=== PATIENT | female | born 1990 | race Caucasian/White ===

== ENCOUNTER → 2022-01-11 13:39 | Outpatient (CLI) | payer OTHER, SELFPAY ==
[2022-01-11 14:17] LABS: COVID19 -Nasal RAPID Negative (Negative)
== END ==
PROVIDERS: PCP Family Medicine; Visit Provider Obstetrics & Gynecology
DX: Z20.822 Contact with and (suspected) exposure to COVID-19 (principal); Z01.812 Encounter for preprocedural laboratory examination
CPT/HCPCS: 87635

== ENCOUNTER 2022-01-12 12:04 | Day surgery (SDC) | payer OTHER, SELFPAY ==
[2022-01-09 15:11] VITALS: BMI 29.1
[2022-01-12] VITALS (13 sets, daily range): BP systolic 118–140; BP diastolic 71–91; PULSE 65–89; RESP 11–18; TEMP 36–36.9; O2SAT 94–100; BMI 29.1
--- NOTE | 2022-01-12 | PATH_ITS ---
[facility] Accession Number: [id number] . 01 Material submitted: . uterus - UTERUS, CERVIX . 01 Diagnosis: Uterus, Cervix, Hysterectomy Not Otherwise Specified (120 grams): Cervix with no significant histomorphologic abnormality. Endocervix with no significant histomorphologic abnormality. Secretory endometrium; negative for glandular hyperplasia, cytologic atypia, or malignancy. Myometrium with no significant histomorphologic abnormality. Uterine serosa with very focal areas suggestive of possible involvement by endometriosis. [facility] 01/17/2022 1548 Local . 01 Electronically signed: . Lyn Muse MD, Pathologist NPI- [id number] . 01 Gross description: . Received in formalin, labeled with the patient's name and uterus, cervix, and consists of a 120 g unopened uterus (9.5 cm SI, 7.0 cm ML, 4.0 cm AP) with attached cervix (3.4 x 3.0 cm), and no fallopian tubes or ovaries. The exocervix is congested, smooth, and glistening. The external os (0.5 cm diameter) is patent and circular. The anterior perimetrium margin is inked blue, and the posterior perimetrium margin is inked black. The endocervical canal (2.5 cm in length) has a zepeda herringbone mucosa. The endometrial cavity (2.9 cm from cornu to cornu, 5.5 cm in length) has a lush pink endometrium averaging 0.3 cm thick. The myometrium measures 1.3 cm in maximum thickness. No discrete nodules, hemorrhage, or necrosis are identified. The uterine serosa is smooth and congested with small areas of punctate hemorrhage on the anterior surface. [employer] sections are submitted as follows: A1: Anterior cervix. A2: Posterior cervix. A3: Anterior serosa to include hemorrhage. A4: Posterior serosa. A5: Anterior full-thickness section. A6: Posterior full-thickness section. A7: Dot Compliance Coordinator endometrium. ([id number]) . Additional sections are submitted as follows: A8-A11: Dot Compliance Coordinator anterior full-thickness sections. A12-A15: Dot Compliance Coordinator full-thickness posterior sections. ([id number]) /[facility] 01/16/2022 [facility] Local . 01 Pathologist provided ICD-10: N80.0, N93.9 . 01 CPT . 461836 Specimen Comment: A courtesy copy of this report has been sent to [phone] Performed at: 01 [facility] [address] [place] [address] [id number] MD Ryne Mg MD Phone: [phone]
--- NOTE | 2022-01-12 13:12 | PM.PREOP ---
Pre-operative Note COVID-19 COVID-19 status: Negative Result date/Date tested (Pos, Neg/Pending): 01/11/22 Criteria for continued procedure: Non-surgical alternatives not available or appropriate per current SOC Interval Note History & Physical reviewed/Exam performed by Physician: Yes Changes to H&P: No
[2022-01-12] MEDS: LACTATED RINGERS 1,000 ML 100 ML IV ×3 (13:22→17:15)
[2022-01-12] MEDS: CEFAZOLIN 2 GM/20 ML SYRINGE IV (13:50)
--- NOTE | 2022-01-12 14:30 | SUR.OPER ---
Lithotomy on padded OR bed. Starkweather Pad Positioner under torso. Head on pillow, arms secured on padded arm boards. Legs secured in padded yellow fins stirrups. Gel pad positoned under right upper arm for support.
[2022-01-12] MEDS: LACTATED RINGERS 1,000 ML 42 ML IV (14:45)
[2022-01-12] MEDS: ROPIVACAINE 0.2% PF 2 MG/ML 10ML AMP 20 ML INJ (15:10)
[2022-01-12] MEDS: BUPIVACAINE 0.5% W/ EPI (PF) 30 ML VIAL INJ (15:15)
[2022-01-12] MEDS: ACETAMINOPHEN IV 1,000 MG/100 ML VIAL 400 MG IV (15:15)
--- NOTE | 2022-01-12 15:54 | PM.GYNOP.1 ---
Operative Date/Time/Diagnoses Date of procedure: 01/12/22 Time of procedure: 14:15 Pre-op diagnosis: Breakthrough bleeding on oral contraceptives Severe premenstrual dysphoric disorder (PMDD) requiring ovarian cycle suppression Post-op diagnosis: same Procedure & Clinicians Procedure: Procedures Operation Date: 01/12/22 13:30 Actual Procedure Side Surgeon p Laparoscopic Total Hysterectomy Antonio Long MD Indications: Shana is a 31-year-old , LMP 10/27/2021 or who presented in referral from [facility] for evaluation and treatment of her premenstrual symptoms.? The patient experienced menarche at age 15 and has had premenstrual mood changes (primarily depressive) as long as she can remember having periods.? The symptoms have progressively worsened with age and she was also diagnosed with chronic depression in 2019.? She has been tried on a variety of SSRIs which did not benefit her PMDD and/or had intolerable side effects.? The most beneficial SSRI was Lexapro but while it helped, it caused significant drowsiness and in higher doses irritability.? She is currently on Efexor daily and under the care of a psychiatrist.? In addition, she has been tried on a variety of oral contraceptives and subsequently the contraceptive patch.? As long as she experienced menstrual suppression, she did not have PMDD symptoms.? Unfortunately she has been having nearly continuous breakthrough bleeding on virtually all control pills that she has tried as well as the patch.? The spotting and bleeding on the pill became so bad that her period in September lasted from 09/14/2021 through 10/05/2021 and she stopped her pills in September.? Pelvic ultrasound performed in November 2020 at [facility] was unremarkable aside from a small functional cyst on one of the ovaries.? No evidence of adenomyosis was seen at the endometrial/myometrial junction and the endometrial stripe was unremarkable.? Patient had a tubal ligation performed in 2018 and has no desire for future childbearing.? The patient is understandably very frustrated and would like definitive therapy if at all possible in the form of hysterectomy with BSO.? She has raise that with her other providers in the past and has been discouraged from pursuing that approach due to the or potential affects/consequences of early surgical menopause.? I have also recommended against surgical menopause at age 31 but rather to remove the uterus/cervix both as a source of pain and bleeding then postoperatively utilize low-dose continuous oral contraceptives to suppress her ovarian cycle and mitigate at least some of her PMDD symptoms.? She is amenable to this approach and is therefore scheduled for total laparoscopic hysterectomy on 01/12/[address] [facility] OR of [facility].? She presents today for preoperative evaluation, counseling, and consent. Surgeon: Antonio Long Aggregate Conveyor Operator: Betina Haddad Anesthesia Type: General Operative Notes Findings: Uterus is hypervascular with varicosities adjacent lateral aspect of the uterus on both sides. The uterus itself is normal in size and mid plane. There is a adhesive band from the anterior aspect of the uterine fundus to the dome of the bladder which was lysed during the course of the surgery. Both fallopian tubes are absent from prior bilateral salpingectomy. Both ovaries appeared to be normal. There are no abnormalities visible in the posterior cul-de-sac. The appendix is visibly normal. The upper abdomen is visibly normal to laparoscopic evaluation. Both ureters were seen to be freely peristalsing before and after completion of the surgery. Closure Type: primary Specimen(s): uterus Applied: catheter Estimated blood loss (mL): 150 Blood products transfused: none Procedure in detail: With the patient under satisfactory general endotracheal anesthesia in the modified dorsal lithotomy position, the perineum, vagina, and abdomen were prepped and draped in the usual manner for total laparoscopic hysterectomy. A pre-surgical safety time-out was then taken in accordance with [facility] protocols. A bivalve speculum was then inserted in the vagina and the cervix visualized. The anterior lip of the cervix was then grasped with a single-tooth tenaculum and the endocervical canal dilated to 6 mm diameter. A [employer] uterine manipulator with a medium cup was then placed in the usual manner and preparations made for TLH. The umbilicus was infiltrated with 0.5% Marcaine with epinephrine and a 5 cm vertical umbilical incision was made. A Veress needle was then used to insufflate the abdominal cavity with carbon dioxide in once insufflated a 5 mm trocar and sleeve was placed. Correct placement of the trocar and sleeve was confirmed laparoscopically and a 2nd and 3rd 5 mm laparoscopic trocar and sleeve were placed in a similar manner in the left and right mid quadrants. Using a 3 puncture technique the pelvis and abdomen were inspected with the findings as noted previously. Attention was then turned to the right adnexa with the utero-ovarian ligament and round ligament taken, coagulated, and divided using a bipolar power seal device. The dissection was carried down the lateral aspect of the uterus on the right side to the level of the colpotomy cup where the bladder flap was initiated from the right side and carried across the midline. The vessels on the right side were then coagulated and left intact. Attention was then turned to the left side with the utero-ovarian ligament and round ligament taken and divided with the power seal device. The dissection was then carried down the left lateral aspect of the uterus with careful avoidance of the varicosities. The bladder flap was then completed at the level of the colpotomy cup and the vessels on the left side were coagulated and divided. The dissection of the posterior peritoneum was carried out along the line of the colpotomy cup and 1 skeletonized attention was turned back to the right side where the vessels were secured with a power seal device and divided. Monopolar J-hook was then used to circumferentially incise the vagina at the level of the fornices and the uterus was easily detached. The uterus was then removed vaginally and the vaginal cuff itself was closed with 0 Vicryl [id number] interrupteds initiated at each angle. Once complete closure the cuff had been achieved and hemostasis assured, a sponge stick was placed in the vagina and the abdomen reinsufflated. The pelvis was inspected and there were no points of bleeding even with reduced intra-abdominal pressure. 20 cc of ropivacaine solution was then placed in the posterior cul-de-sac and the pneumoperitoneum vented. The laparoscopic sleeves were then removed after of venting of the pneumoperitoneum and the incisions were closed with 4-0 Monocryl using inverted interrupted stitches. Appropriate dressings were then applied, the sponge stick was removed from the vagina, the patient awakened, and was transferred to the PACU after having tolerated the procedure well. Urine output 150 cc of clear but concentrated urine. Complications: none Post-operative Condition: stable Disposition: PACU Plan for aftercare: Routine postoperative care. Anticipate discharge, a.m. 01/13/2022
--- NOTE | 2022-01-12 17:33 | PC.NURSE ---
Pt arrived from PACU @ 1715 Alert/drowsy SpO2 96% RA, pt uses Cpap at [facility]. Abdomen soft w/ 3 sites across middle. All sites CDI No drainage on lorna pad at this time. Oriented to room & call system. Call light w/in reach, bed alarm on for pt safety. Continue w/plan of care.
[2022-01-12] MEDS: KETOROLAC 30 MG/ML VIAL IV ×2 (18:15→23:05)
[2022-01-12] MEDS: DOCUSATE 100 MG CAPSULE 200 MG PO (21:28)
[2022-01-12] MEDS: OXYCODONE IR 5 MG TABLET PO (21:31)
--- NOTE | 2022-01-12 23:52 | PC.NURSE ---
2320 Up OOB & ambulated to the bathroom. Did well denies dizziness, per MD order noted may discontinue swenson when able to go to the bathroom. Swenson DC'd @ 2330 tolerated procedure well. Up to the BR & sat in the toilet after swenson cath. was DC'd, noted approximately 2 cc of blood . Veronika & skin care done placed underwear & peripad. Instructed to call for assistance if she needed to get up to the BR. to void. Informed pt. that her doctor ordered PVR after she voided. Will cont. POC & monitor.
--- NOTE | 2022-01-13 01:19 | PC.NURSE ---
Up to the bathroom voided 600 ml. of clear yellow urine, no blood noted. Bladder scanned checking for post void residual only 5 ml. noted. Pt. denies any pain, will cont. POC & monitor.
[2022-01-13] MEDS: LACTATED RINGERS 1,000 ML 100 ML IV (03:09)
[2022-01-13 04:42] LABS: Add Manual Diff / Slide Review NO; Basophils Absolute Auto 0 /uL (0-100); Basophils Percent Auto 0.1 % (0-2); Eosinophils Absolute Auto 0 /uL (0-450); Hematocrit 32.9 % (36-46); Hemoglobin 11.4 g/dL (12.0-16.0); Lymphocytes Absolute Auto 1300 /uL (1100-4500); Lymphocytes Percent Auto 10.9 % (25-40); Mean Corpuscular HGB Conc 34.5 % (30-36); Mean Corpuscular Hemoglobin 30.4 PG (26-34); Monocytes Absolute Auto 700 /uL (0-900); Neutrophils Absolute Auto 9500 /uL (1500-7000); Platelet Count 349 X10^3/uL (150-400); Red Blood Cell Count 3.74 X10^6/uL (4.0-5.2); Red Cell Distribution Width 13.2 % (11.6-14.8); White Blood Cell Count 11.5 X10^3/uL (4.5-11.0)
[2022-01-13] MEDS: KETOROLAC 30 MG/ML VIAL IV ×2 (05:06→10:47)
--- NOTE | 2022-01-13 05:30 | PC.NURSE ---
Voided 700 cc & checked PVR only 18 ml.
[2022-01-13] MEDS: OXYCODONE IR 5 MG TABLET PO (06:35)
[2022-01-13 08:00] VITALS: BP 133/75; PULSE 82; RESP 16; TEMP 36.8; O2SAT 98
[2022-01-13] MEDS: VENLAFAXINE ER 75 MG CAP PO (08:52)
[2022-01-13] MEDS: DOCUSATE 100 MG CAPSULE 200 MG PO (08:53)
--- NOTE | 2022-01-13 09:06 | PM.DS.1 ---
History of Present Illness History of Present Illness Date Patient Seen: 01/13/22 Time Patient Seen: 09:06 Chief complaint: OPB Discharge Providers Provider Date of admission: 01/12/2022 Discharge Date: 01/13/22 Primary care physician: Jordan Easton MD Consults: 01/12/22 13:02 Consult to Respiratory Therapy Evaluate & Treat Comment: Physician Instructions: Evaluate and treat Discharge provider: Antonio Long MD Summary Hospital Course Discharge Diagnosis: Abnormal uterine bleeding on oral contraceptives Severe PMDD requiring ovarian cycle suppression for control Hospital Course: Shana was admitted on 01/12/2022 and underwent an on eventful total laparoscopic hysterectomy on that afternoon. Details of the procedure well summarized in my dictated operative note of that date. Following surgery the patient has done extremely well with prompt return of bowel and bladder function overnight, she is ambulating independently, tolerating regular diet, and her pain is well controlled with oral pain medications. She is not having any significant vaginal bleeding and her 1st morning postop hemoglobin and hematocrit are consistent with observed operative losses at the time of surgery. Patient will be discharged at this time to home in an afebrile normotensive state now after being counseled regarding precautionary symptoms, limitations of activity, medications, and plans for follow-up. Medications will include all of her pre hospitalization home medications and patient is prescribed oxycodone 5 mg tab 1 p.o. q.6 hours as needed pain x3 days dispense 10. Patient will also use pikr-ggh-[id number] Tylenol and ibuprofen for pain relief and will be seen back in the office in 2 weeks for her initial postop visit. Status at Discharge Cognitive/behavioral status at discharge: oriented Functional status at discharge: independent ambulation Overall status at discharge: patient is progressing back to baseline Time Spent with Patient Time spent: Less than 30 minutes Exam Vital Signs (past 8 hours): - 01/13/22 08:00 Temperature 98.3 F Pulse Rate 82 Respiratory Rate 16 Blood Pressure 133/75 Pulse Oximetry 98 Oxygen Delivery Method Nasal Cannula Oxygen Flow Rate 0 Const General: cooperative and comfortable Nutritional Appearance: average body habitus Orientation: alert and oriented x3 HENMT Head: normal to inspection, atraumatic and abrasion Ears: hearing grossly normal bilaterally Face and sinus: face symmetric Eyes General: appearance normal, both eyes and all related structures Conjunctivae: conjunctivae normal Sclera: sclerae normal EOM: EOM intact bilaterally Neck Neck: normal visual inspection Resp Effort & Inspection: normal respiratory effort and able to speak in complete sentences Auscultation: clear to auscultation bilaterally Cardio Rate: regular rate Rhythm: regular rhythm Heart Sounds: S1 normal, S2 normal and no murmurs GI Inspection: normal to inspection and incision (Surgical dressings clean and dry) Palpation: soft, no hepatosplenomegaly and tender (Mild, diffuse postsurgical tenderness) External Female Exam: other (No significant bleeding noted) Extrem General: no calf tenderness Psych Appearance: grossly normal Mental Status: mental status grossly normal Speech and Movement: speech and movement normal Mood: congruent mood Affect: normal affect Attitude: cooperative Thought Process: normal Thought Content: normal Judgment: judgment good Objective Labs Result Diagrams: 01/13/22 04:20 Labs: Laboratory Results - last 24 hr 01/13/22 04:20 WBC 11.5 H RBC 3.74 L Hgb 11.4 L Hct 32.9 L MCV 88.0 MCH 30.4 MCHC 34.5 RDW 13.2 Plt Count 349 Neut % (Auto) 83.0 H Lymph % (Auto) 10.9 L [place] % (Auto) 6.0 Eos % (Auto) 0.0 L Baso % (Auto) 0.1 Neut # (Auto) 9500 H Lymph # (Auto) 1300 [place] # (Auto) 700 Eos # (Auto) 0 Baso # (Auto) 0 PFSH Medical History Abnormal Pap smear of cervix (~2011) ADHD Anxiety and depression Chicken pox Heavy menstrual period (~2020) Human papilloma virus (~2011) Irregular menstrual cycle (~2020) Left hip pain (~2011) Surgical History Anesthesia History of section (~2017) History of hip surgery Family History (Updated 11/12/21 @ 19:51 by Maggi Young) Father Mental health problem Mother Diabetes mellitus Grandfather Diabetes mellitus Social History household members: spouse and children Smoking Status: Former smoker alcohol intake: current Discharge Assessment & Plan Assessment and Plan Assessment: Status post total laparoscopic hysterectomy due to abnormal uterine bleeding on continuous oral contraceptives Severe PMDD requiring ovarian cycle suppression for control Plan of Treatment: Routine postoperative care with plans for follow-up visit in 2 weeks. Patient has been using NuvaRing but will instead initiate continuous use of Anahy for ovarian cycle suppression in treatment of her severe PMDD. Discharge Plan Discharge Plan Patient Disposition: Home Provider Discharge Comment: Please review the instructions you received when you were discharged from the hospital. Your postoperative visit will be scheduled for 2 weeks following your surgery and I look forward to seeing you then. If in the meanwhile however you have any problems, concerns, or issues, please contact me either through the office phone at [phone] or via the patient portal. Discharge orders & Medications Discharge Orders: Discharge (Order); Ordered 01/13/22 Ordered By: Antonio Long Prescriptions: New docusate sodium 100 mg Capsule 200 mg PO BID 10 Days Qty: 40 1RF oxycodone 5 mg Tablet 5 mg PO Q6H PRN (Reason: Pain, Moderate (4-6)) 3 Days Qty: 10 0RF drospirenone-ethinyl estradiol 3-0.03 mg tablet 1 tab PO DAILY Qty: 84 6RF Rx Instructions: Take the first three rows of pills in each pack, discard the fourth row, and start a new pack every three weeks. Continued venlafaxine [Effexor XR] 75 mg capsule,extended release 24hr 75 mg PO DAILY Vyvanse 60 mg capsule 60 mg PO DAILY Discontinued etonogestrel-ethinyl estradiol [NuvaRing] 0.12-0.015 mg/24 hr ring 1 vag ring vaginal Q4W Rx Instructions: leave in place for 3 weeks of a 4-week cycle Follow up/Referrals: Jordan Easton MD [Primary Care Provider] - Diet/Activity/Treatments Diet: Diet as Tolerated Activity: As tolerated Other treatments: [id number]-[id number] Tylenol (up to 4000 mg daily) and/or ibuprofen 600 mg by mouth every 6 hours as needed for pain. Skin/Wound/Dressing Care Report to your healthcare provider any signs of infection, such as:: chills, fever, increased pain, unusual drainage and unusual redness Dressing: Dressings may be removed on the morning of 01/14/2022 Visit Report/Discharge Packet Instructions: DI for Hysterectomy, DI for Laparoscopy, DI for Prescription Opioid Use, Oxycodone Stand Alone Forms: Surgery Discharge Print Language: Slovenian Discharge Data Primary Care Provider: Jordan Easton Attending Provider: Antonio Long VTE Deep Vein Thrombosis/Pulmonary Embolism Present on Admission: No
--- NOTE | 2022-01-13 10:04 | PC.NURSE ---
Addendum entered by Anila Gee R.N. 01/13/22 12:37: Patient discharged home, iv taken out by mack Leon. Paperwork gone over and out to car with mack. Mom to drive patient home. Original Note: Assess- Patient is alert and oriented x3, she denies pain. She has three lapsites all covered with allevyn dressings. Veronika pad is present with a shadow drainage of red blood. She is voiding and is ready to be discharged home. She will leave at 11am.
[2022-01-13] MEDS: ACETAMINOPHEN 325 MG TABLET 650 MG PO (12:26)
--- NOTE | 2022-01-13 14:06 | CM.IDA ---
Initial DCP Assessment Note Pt is a 31 yo female, resident of [place], now POD#1 from total laparoscopic hysterectomy by Dr Long PCP: Jordan Easton Payer: Mireya Whitfield Reviewed chart, pt discussed in multidisciplinary rounds this morning. Patient voiding, ambulating independently, discharged home w/family today and close outpatient f/u No needs from DC planning team identified before patient's discharge home this morning CHICO Mcclelland
== END 2022-01-13 12:38 | disposition home or self-care (01) ==
LOC: OR 12:06 → AC 12:09
PROVIDERS: PCP Family Medicine; Referring Provider Obstetrics & Gynecology; Visit Provider Obstetrics & Gynecology
PROC: 0UT94ZZ Resection of Uterus, Percutaneous Endoscopic Approach (ICD-10-PCS; CPT 58570; principal; 2022-01-12 13:30)
DX: F32.81 Premenstrual dysphoric disorder (principal); N92.6 Irregular menstruation, unspecified
CPT/HCPCS: 58570; 36415; 82962; 85025; J0131; J0330; J0690; J1100; J1170; J1885; J2405; J2704; J2795; J3010

== ENCOUNTER 2023-06-14 08:59 | Day surgery (SDC) | payer OTHER, SELFPAY ==
[2022-01-12 17:02] VITALS: BMI 29.1
[2023-04-11 15:33] VITALS: BMI 29.7
[2023-06-14 09:53] VITALS: BMI 28.7
[2023-06-14] MEDS: ACETAMINOPHEN 325 MG TABLET 975 MG PO (10:01)
[2023-06-14] MEDS: LACTATED RINGERS 1,000 ML 42 ML IV (10:02)
[2023-06-14] MEDS: SCOPOLAMINE 1 PATCH TOP (10:02)
[2023-06-14 10:15] VITALS: BP 112/73; PULSE 58; RESP 16; TEMP 36.2; O2SAT 100
--- NOTE | 2023-06-14 10:31 | PM.PREOP ---
Pre-operative Note Interval Note History & Physical reviewed/Exam performed by Physician: Yes Changes to H&P: No
--- NOTE | 2023-06-14 10:31 | PM.HP.1 ---
History of Present Illness History of Present Illness Date Patient Seen: 06/14/23 Chief complaint: SDC Narrative: 32-year-old female with known severe BRIANNE on fullface CPAP with chronic tonsillitis and dysphagia presents for tonsillectomy with possible adenoidectomy as outpatient. Last seen in clinic 01/02/2023, no interval health changes, wishes to proceed. She is not willing at this point to take ibuprofen due to severe intolerance on high doses in the past. [facility] Medical History Sleep apnea treated with continuous positive airway pressure (CPAP) Anxiety and depression ADHD Left hip pain (~2011) Chicken pox Human papilloma virus (~2011) Heavy menstrual period (~2020) Abnormal Pap smear of cervix (~2011) Surgical History H/O total hysterectomy Anesthesia History of section (~2017) History of hip surgery Family History Father Mental health problem Mother Diabetes mellitus Grandfather Diabetes mellitus Social History household members: spouse and children Smoking Status: Former smoker alcohol intake: current Meds Home Medications and Allergies Home Medications Medication Instructions Recorded Confirmed Type dextroamphetamine-amphetamine 10 10 mg PO BID 06/14/23 06/14/23 History mg tablet (Adderall) dextroamphetamine-amphetamine ER 30 mg PO DAILY 06/14/23 06/14/23 History 30 mg 24hr capsule,extend release (Adderall XR) Allergies Allergy/AdvReac Type Severity Reaction Status Date / Time methocarbamol [From Robaxin] Allergy Severe Anaphylaxis Verified 02/21/22 10:54 ibuprofen AdvReac Severe Gastrointestinal Verified 06/14/23 09:47 Upset Review of Systems Review of Systems Narrative: Negative except as listed in the HPI Exam Vital Signs (past 8 hours): - 06/14/23 10:15 Temperature 97.2 F L Pulse Rate 58 L Respiratory Rate 16 Blood Pressure 112/73 Pulse Oximetry 100 Oxygen Delivery Method Room Air Oxygen Delivery Method Room Air Narrative Exam Narrative: Well-developed well-nourished, heart regular rate and rhythm without murmur, lungs clear to auscultation bilaterally Assessment & Plan Assessment & Plan narrative: Assessment: 1. Chronic tonsillitis 2. Throat pain 3. BRIANNE 4. Tonsillar hypertrophy 5. Dysphagia Plan: Following discussion of the material risks benefits complications and alternatives, the patient elected to proceed.
--- NOTE | 2023-06-14 10:33 | PM.OP.1 ---
Operative Date/Time/Diagnoses Date of procedure: 06/14/23 Time of procedure: 11:27 Pre-op diagnosis: Chronic tonsillitis, throat pain, BRIANNE, tonsillar hypertrophy, dysphagia Post-op diagnosis: same (with mild adenoid hypertrophy) Procedure & Clinicians Procedure: Tonsillectomy and adenoidectomy Same procedure as scheduled: Yes Indications: 32 Year old with the above diagnoses incompletely managed with medical therapy presents for the above procedure. Following discussion of the material risks benefits complications and alternatives, the parents elected to proceed. Surgeon: Leon Hawkins Click Yes if Unassisted: Yes Anesthesia Type: General and Local Operative Notes Findings: Intact, single uvula, 3+ tonsils 2+ adenoids Estimated Blood Loss (mL): 5 Procedure in detail: Following identification and confirmation of consent the patient was brought to the operating room suite and placed in the supine position. General endotracheal anesthesia was administered. A head wrap, shoulder roll, and mouth gag were placed and a red rubber catheter was inserted through the nostril and out the mouth to retract the soft palate. Partially obstructive adenoid tissue was ablated with suction electrocautery on a setting of 40, without injury to the eustachian tube orifices or choana. The left tonsil was retracted medially and suction electrocautery on a setting of 30 was used to dissect the tonsil in a subcapsular plane, followed by hemostasis with the same. This process was repeated on the right side with identical findings. The tonsillar fossae were superficially infiltrated bilaterally with 1% lidocaine 1 100,000 epinephrine. Mouth gag and rubber catheter were removed and the patient was extubated in the operating room and taken to the recovery room in stable condition without known complication. Complications: none Post-operative Condition: stable Disposition: same day surgery Plan for aftercare: Push fluids, alternate Tylenol and POSSIBLY Advil every 3 hours for baseline pain control, oxycodone for breakthrough pain. Soft diet 2 full weeks, no heavy lifting or straining 2 weeks.
--- NOTE | 2023-06-14 11:11 | SUR.OPER ---
Supine on padded OR bed, head on pillow, arms secured on padded arm boards at <90 degrees abduction, legs uncrossed, safety belt at thigh, tape over blanket over lower legs.
[2023-06-14] MEDS: LIDOCAINE 1% W/EPI 20 ML INJ (11:12)
[2023-06-14 11:40] VITALS: BP 135/78; PULSE 92; RESP 16; TEMP 36.2; O2SAT 97
[2023-06-14 11:45] VITALS: BP 140/74; PULSE 68; RESP 16; TEMP 36.1; O2SAT 98
[2023-06-14 11:50] VITALS: BP 140/88; PULSE 72; RESP 14; O2SAT 98
[2023-06-14] MEDS: OXYCODONE IR 5 MG TABLET PO ×2 (11:54→12:40)
[2023-06-14] MEDS: ONDANSETRON 4 MG/2 ML INJ IV (11:55)
[2023-06-14 12:04] VITALS: BP 134/66; PULSE 78; RESP 16; TEMP 36.1; O2SAT 98
[2023-06-14 12:48] VITALS: BP 130/66; PULSE 70; RESP 16; TEMP 36.7; O2SAT 99
== END 2023-06-14 12:51 | disposition home or self-care (01) ==
PROVIDERS: Referring Provider Otolaryngology; Visit Provider Otolaryngology
PROC: (CPT 42821; principal; 2023-06-14 10:00)
DX: G47.33 Obstructive sleep apnea (adult) (pediatric) (principal); R13.10 Dysphagia, unspecified
CPT/HCPCS: 42821; 81025; J1100; J2405; J2704; J3010

== ENCOUNTER → 2025-02-26 09:38 | Outpatient (CLI) | payer OTHER, SELFPAY ==
[2022-01-12 17:02] VITALS: BMI 29.1
--- NOTE | 2025-02-26 09:43 | DI.CT.S_ITS ---
PROCEDURE: CT HEAD/BRAIN WO CON INDICATIONS: HEAD INJURY TECHNIQUE: Noncontrast 4.5 mm thick angled axial sections acquired from the foramen magnum to the vertex, with coronal and sagittal reformats. For radiation dose reduction, the following was used: automated exposure control, adjustment of mA and/or kV according to patient size. COMPARISON: None. FINDINGS: Image quality: Diagnostic. CSF spaces: Basal cisterns are patent. No extra-axial fluid collections. Ventricles are normal in size and shape. Brain: No midline shift. No intracranial mass effect or hemorrhage. Price- white matter interface is normal. Skull and face: Calvarium and visualized facial bones are intact, without suspicious lesions. Sinuses: Visualized sinuses and mastoids are clear. IMPRESSION: No acute intracranial pathology. No trauma found. Dictated by: Rc Marks M.D. on 02/26/2025 at 11:08 Approved by: Rc Marks M.D. on 02/26/2025 at 11:09
--- NOTE | 2025-02-26 09:43 | DI.CT.S_ITS ---
PROCEDURE: CT SINUS SCREEN WO CON INDICATIONS: HEAD INJURY TECHNIQUE: Noncontrast 3.0 mm axial images acquired from the frontal sinuses to the mid- sella, with coronal and sagittal reformats. For radiation dose reduction, the following was used: automated exposure control, adjustment of mA and/or kV according to patient size. COMPARISON: None. FINDINGS: Image quality: Excellent. Sinuses: Sinuses are clear. No significant mucosal thickening, mucous retention cysts/polyps or fluid levels. Ostiomeatal Complexes: Ostiomeatal complexes are patent. No Celsa cells. Miscellaneous: Visualized intra-orbital contents are normal. No yuri bullosa. Right inferior paradoxical turbinate curvature. Rightward nasal septal deviation. IMPRESSION: Sinuses are clear. Dictated by: Beti Savage M.D. on 02/26/2025 at 20:40 Approved by: Beti Savage M.D. on 02/26/2025 at 20:48
== END ==
PROVIDERS: Referring Provider Family Medicine; Visit Provider Family Medicine
DX: S09.92XA Unspecified injury of nose, initial encounter (principal); S09.90XA Unspecified injury of head, initial encounter; R51.9 Headache, unspecified; R04.0 Epistaxis; J34.89 Other specified disorders of nose and nasal sinuses; X58.XXXA Exposure to other specified factors, initial encounter
CPT/HCPCS: 70450; 70486